=== PATIENT | female | born 1970 | race American Indian/Alaskan Native ===

== ENCOUNTER 2016-12-01 17:01 | Observation (INO) | payer BC ==
[2016-12-01] MEDS ORDERED: D5LR 1,000 ML IV ONE (18:00)
[2016-12-01] MEDS ORDERED: LACTATED RINGERS 1,000 ML ONE (20:31)
[2016-12-01] MEDS ORDERED: TYLENOL PO PRN (20:36)
[2016-12-01] MEDS ORDERED: ALUM-MAG HYDROX-SIMETH 200-200-20MG/5ML PO PRN (20:36)
[2016-12-01] MEDS ORDERED: MILK OF MAGNESIA PO PRN (20:36)
[2016-12-01] MEDS ORDERED: COLACE PO PRN (20:36)
[2016-12-01] MEDS ORDERED: MYLICON PO PRN (20:36)
[2016-12-01] MEDS ORDERED: LACTATED RINGERS 1,000 ML IV SCH (21:00)
--- NOTE | 2016-12-01 21:00 | History and Physical Report ---
History of Present Illness Date of examination: 12/01/16 Chief complaint: NRFHT History of present illness: This is a 46-year-old female who presents to triage from the office due to nonreassuring heart rate tracing. She has a history of hypertension and hypothyroidism. She has not required any medications for her height per tension. She is follow by a MFM and has a BPP done once a week with MFM and NST done in the office weekly. Today strip was minimal variability with minimal accelerations. Patient gives a history of a similar strip occurring approximately 2 weeks ago. Her evaluation consisted of a BPP that was 8 out of 8. She then went home to [facility] where she had an episode of decreased movement and was evaluated at [facility] where a similar strip was also seen but also her BPP was 8 out of 8. Patient states she was followed up in the office the next week or her NST was reactive. Today her BPP is 8 out of 8 however strip continues to be minimally reactive. She is admitted now for prolonged monitoring. Past History : 4 Para: 0 Aborta: 3 Spont. Ab: 1 # 1 Delivery date: 1994 Delivery type: EAB # 2 Delivery date: 1999 Delivery type: EAB #3 Delivery date: 2009 Delivery type: SAB w/ D&C Past Medical History: Hypertension no meds Hypothyroidism Past Surgical History: D&C 2009 Past Medical History Anesthesia Complications: negative Anemia: negative Autoimmune Disorder: negative Bleeding Disorder: negative Blood Transfusions: negative Breast Disease: negative Diabetes: negative Heart Disease: negative Hypertension: positive Hepatitis/Liver Disease: negative Kidney Disease/UTI: negative Neurologic/Epilepsy/Migraines: negative Phlebitis/Varicosities: negative Psychiatric: negative Pulmonary Disease/Asthma: negative Thyroid Disease: positive Hospitalizations: negative Surgery (Non-match up person): D&C 2009 Abnormal PAP: positive, age 29, cryo SUKHDEEP Exposure: negative Infertility: positive Uterine Anomaly: negative Uterine Surgery (not C/S): negative Other Gynecologic Problems: negative Social Hx: , no etoh, no illicit drug use, no tobacco use x 3 years Patient is 2012. he had a mental breakdown Infection History Hx of STD: gonorrhea HIV Risk Eval: no Hepatitis B Risk Eval: low risk Personal hx. of genital herpes: no Partner hx. of genital herpes: no Rash, Viral, or Febrile illness since last LMP? no Varicella/Chicken Pox Status: Previous Disease TB Risk: no Infection History Comments: 1990 Genetic History ADVANCED MATERNAL AGE Congenital Heart Defect: Mom: no Dad: no Jah Disease: Mom: no Dad: no Thalassemia Mom: no Dad: no Neural Tube Defect Mom: no Dad: no Down's Syndrome Mom: no Dad: no Nile-Sachs Mom: no Dad: no Sickle Cell Disease/Trait Mom: no Dad: no Hemophilia Mom: no Dad: no Muscular Dystrophy Mom: no Dad: no Cystic Fibrosis Mom: no Dad: no [place] Chorea Mom: no Dad: no Mental Retardation Mom: no Dad: no Fragile X Mom: no Dad: no Other Genetic/Chromosomal Disorder Mom: no Dad: no Child w/other defect Mom: no Dad: no Enviromental Exposures Xray Exposure: no Medication, drug, or alcohol use since LMP: no Chemical/Other Exposure: no Exposure to Cat Liter: no 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 (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): SYNTHROID 25 MCG TABS (LEVOTHYROXINE SODIUM) 1 tab daily Current Allergies (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): No known allergies Past History - Obstetrical History Expected Date of Delivery: 01/07/17 Actual Gestation: 34 Week(s) 5 Day(s) : 4 Medications and Allergies Allergies Allergy/AdvReac Type Severity Reaction Status Date / Time No Known Allergies Allergy Unverified 02/13/13 14:33 Home Medications Medication Instructions Recorded Confirmed Last Taken Type Levothyroxine [Synthroid] 25 mcg PO QAM 02/13/13 02/13/13 Unknown History amLODIPine [Norvasc] 5 mg PO DAILY #60 tab 02/13/13 Unknown Rx Active Meds: Active Medications Acetaminophen (Tylenol) 650 mg PO Q4H PRN PRN Reason: Pain MILD(1-3)/Fever >100.5/CHOW Al Hydrox/Mg Hydrox/Simethicone (Alum-Mag Hydrox-Simeth [phone]/5ml) 30 ml PO Q6H PRN PRN Reason: Indigestion Docusate Sodium (Colace) 100 mg PO Q12H PRN PRN Reason: Constipation Lactated Ringer's (Lactated Ringers) 1,000 mls @ 125 mls/hr IV DIRECT LEIDA Lactated Ringer's (Lactated Ringers) 1,000 mls @ 125 mls/hr IV DIRECT LEIDA Magnesium Hydroxide (Milk Of Magnesia) 30 ml PO QHS PRN PRN Reason: Laxative Effect Multivitamins/Iron/Calcium ( Vitamin) 1 each PO QDAY LEIDA Simethicone (Mylicon) 80 mg PO Q6H PRN PRN Reason: Gas pain Review of Systems All systems: negative - Vital Signs Vital signs: Vital Signs Pulse BP 91 H 122/80 12/01/16 17:17 12/01/16 17:17 Temp Pulse Resp BP Pulse Ox 85 115/80 99 12/01/16 20:49 12/01/16 20:11 12/01/16 20:49 - Obstetrical FHR: category 2 Uterine Contraction Monitor Mode: External Results All other labs normal. Assessment and Plan - Patient Problems (1) 34 weeks gestation of Current Visit: Yes Status: Acute (2) Hypothyroidism affecting Current Visit: Yes Status: Acute Qualifiers: Trimester: T (3) Non-reassuring electronic monitoring tracing Current Visit: Yes Status: Acute Plan to address problem: Patient states she hasn't eaten all day. She is received 1 L of D5 LR. Will continue IV fluid hydration with LR. Will also allow her to eat. Continuous electronic monitoring. (4) Hypertension Current Visit: No Status: Acute Qualifiers: Hypertension type: H
[2016-12-01 22:35] LABS: Hematocrit 35.7 % (30.3-42.9); Hemoglobin 12.2 gm/dl (10.1-14.3); Mean Corpuscular HGB Conc 34 % (30-34); Mean Corpuscular Hemoglobin 30 pg (28-32); Mean Corpuscular Volume 88 fl (79-97); Platelet Count 209 K/mm3 (140-440); Red Blood Count 4.06 M/mm3 (3.65-5.03); White Blood Count 9.8 K/mm3 (4.5-11.0)
[2016-12-01 22:53] LABS: Alanine Aminotransferase 20 units/L (7-56); Albumin 3.3 g/dL (3.9-5); Albumin/Globulin Ratio 0.9 %; Alkaline Phosphatase 105 units/L (35-129); Anion Gap 20 mmol/L; Blood Urea Nitrogen 5 mg/dL (7-17); Carbon Dioxide 18 mmol/L (22-30); Chloride 99.7 mmol/L (98-107); Glucose 112 mg/dL (65-100); Potassium 3.9 mmol/L (3.6-5.0); Sodium 134 mmol/L (137-145); Total Protein 7.1 g/dL (6.3-8.2)
[2016-12-01] MEDS: LACTATED RINGERS 1,000 ML IV SCH (23:35)
[2016-12-02] MEDS: LACTATED RINGERS 1,000 ML IV SCH (07:13)
[2016-12-02 08:10] VITALS: BP 135/80
--- NOTE | 2016-12-02 08:17 | Progress Note ---
Assessment and Plan patient resting without complaints. reports active FM, denies ctx, srom or vag bleeding. tracing remains w/ mostly minimal variability, + 10x10 accels. BPP last night 11/21. Patient requesting to go home. Will consult dr. Guerra. - Patient Problems (1) 34 weeks gestation of Current Visit: Yes Status: Acute (2) Hypothyroidism affecting Current Visit: Yes Status: Acute Qualifiers: Trimester: T (3) Non-reassuring electronic monitoring tracing Current Visit: Yes Status: Acute (4) Hypertension Current Visit: No Status: Acute Qualifiers: Hypertension type: essential hypertension Qualified Code(s): I10 - Essential (primary) hypertension Subjective - Subjective Date of service: 12/02/16 Principal diagnosis: IUP @ 34+ weeks, observation for monitoring Patient reports: movement normal, other ("I'm ready to go home"), no new complaints, no loss of fluid, no vaginal bleeding, no contractions Objective - Vital Signs Vital Signs: Vital Signs - 12hr 12/01/16 12/01/16 12/01/16 20:14 20:19 20:24 Temperature Pulse Rate 94 H 87 86 Respiratory Rate Blood Pressure O2 Sat by Pulse 99 99 99 Oximetry 12/01/16 12/01/16 12/01/16 20:29 20:34 20:39 Temperature Pulse Rate 103 H 92 H 94 H Respiratory Rate Blood Pressure O2 Sat by Pulse 99 100 99 Oximetry 12/01/16 12/01/16 12/01/16 20:44 20:49 20:54 Temperature Pulse Rate 82 85 81 Respiratory Rate Blood Pressure O2 Sat by Pulse 100 99 98 Oximetry 12/01/16 12/01/16 12/01/16 20:59 21:02 21:04 Temperature Pulse Rate 83 91 H 86 Respiratory Rate Blood Pressure O2 Sat by Pulse 99 89 99 Oximetry 12/01/16 12/01/16 12/01/16 21:09 21:14 21:19 Temperature Pulse Rate 83 90 94 H Respiratory Rate Blood Pressure O2 Sat by Pulse 99 100 98 Oximetry 12/01/16 12/01/16 12/01/16 21:24 21:29 21:34 Temperature Pulse Rate 93 H 103 H 105 H Respiratory Rate Blood Pressure O2 Sat by Pulse 100 94 99 Oximetry 12/01/16 12/01/16 12/01/16 21:39 21:44 21:49 Temperature Pulse Rate 96 H 104 H 101 H Respiratory Rate Blood Pressure O2 Sat by Pulse 100 100 99 Oximetry 12/01/16 12/01/16 12/01/16 21:54 23:24 23:25 Temperature 98.6 F Pulse Rate 92 H 98 H 98 H Respiratory 20 Rate Blood Pressure 120/71 120/71 O2 Sat by Pulse 100 Oximetry 12/02/16 12/02/16 12/02/16 03:14 03:15 03:22 Temperature 98.7 F Pulse Rate 96 H 96 H 96 H Respiratory 20 Rate Blood Pressure 127/61 127/61 O2 Sat by Pulse 98 Oximetry 12/02/16 12/02/16 08:07 08:08 Temperature Pulse Rate 96 H 94 H Respiratory Rate Blood Pressure 135/80 O2 Sat by Pulse 98 Oximetry - Exam Breasts: normal Cardiovascular: Regular rate Lungs: Clear to auscultation, Normal air movement Abdomen: Present: normal appearance, soft Vulva: both: normal Uterus: Present: normal FHR: category 2 FHR comments: min variabilty with 10x10 accels. there are short periods of time where variability is average. Uterine Contraction Monitor Mode: External Uterine Contraction Pattern: Absent Uterine Tone Measurement Phase: Resting Extremities: normal Deep Tendon Reflex Grade: Normal +2 - Labs Labs: Abnormal Labs 12/01/16 12/01/16 12/01/16 21:57 21:57 21:57 RDW 16.0 H Sodium 134 L Carbon Dioxide 18 L BUN 5 L Creatinine 0.5 L Glucose 112 H Albumin 3.3 L Free T4 0.70 L Laboratory Results - last 24 hr 12/01/16 12/01/16 12/01/16 21:57 21:57 21:57 WBC 9.8 RBC 4.06 Hgb 12.2 Hct 35.7 MCV 88 MCH 30 MCHC 34 RDW 16.0 H Plt Count 209 Sodium 134 L Potassium 3.9 Chloride 99.7 Carbon Dioxide 18 L Anion Gap 20 BUN 5 L Creatinine 0.5 L Estimated GFR > 60 BUN/Creatinine Ratio 10.00 Glucose 112 H Calcium 9.0 Total Bilirubin 0.40 AST 25 ALT 20 Alkaline Phosphatase 105 Total Protein 7.1 Albumin 3.3 L Albumin/Globulin Ratio 0.9 TSH Free T4 0.70 L Blood Type Antibody Screen 08/18/17 08/18/17 21:57 22:10 WBC RBC Hgb Hct MCV MCH MCHC RDW Plt Count Sodium Potassium Chloride Carbon Dioxide Anion Gap BUN Creatinine Estimated GFR BUN/Creatinine Ratio Glucose Calcium Total Bilirubin AST ALT Alkaline Phosphatase Total Protein Albumin Albumin/Globulin Ratio TSH 2.890 Free T4 Blood Type A POSITIVE Antibody Screen Negative
--- NOTE | 2016-12-02 09:22 | Event Note ---
Date: 12/02/[address] herrera, currently with yohana lara and accels. plan for d/c home with strict instructions for [facility]. NST Appointment scheduled for Sunday with Dr. herrera @ 1400.
--- NOTE | 2016-12-02 09:26 | Discharge Summary ---
Providers - Providers Date of Admission: 12/01/16 22:39 Date of discharge: 12/02/16 Attending physician: ARTHUR SAN Primary care physician: ARTHUR SAN Hospitalization Reason for admission: observation Discharge diagnosis: other (IUP @ 34 wga, admission for prolonged monitoring for wellbeing. ) Hospital course: prolonged monitoring for wellbeing. Condition at discharge: Good Disposition: DC-01 TO HOME OR SELFCARE - Discharge Diagnoses (1) 34 weeks gestation of Status: Acute (2) Hypothyroidism affecting Status: Acute Qualifiers: Trimester: T (3) Non-reassuring electronic monitoring tracing Status: Resolved (4) Hypertension Status: Acute Qualifiers: Hypertension type: essential hypertension Qualified Code(s): I10 - Essential (primary) hypertension Plan - Provider Discharge Summary Activity: routine Diet: routine Instructions: routine Additional instructions: [] Smoking cessation referral if applicable(refer to patient education folder for contact #) [] Refer to [facility] Booklet Call your doctor immediately for: * Fever > 100.5 * Heavy vaginal bleeding ( >1 pad per hour) * Severe persistent headache * Shortness of breath * Reddened, hot, painful area to leg or breast * Drainage or odor from incision. * Keep incision clean and dry at all times and follow doctor's instructions regarding bathing/showering - Follow up plan Follow up: ARTHUR SAN MD [Primary Care Provider] - 12/04/16 2:00 pm (An appointment has been made for Sunday @ 2PM in the [place] office. Please also keep your appointment with [facility] on Sunday. Please perform kick counts twice a day. Call [phone] for any questions or concerns. )
[2016-12-02] MEDS ORDERED: PRENATAL VITAMIN PO SCH (10:00)
--- NOTE | 2016-12-03 10:35 | Ultrasound Report ---
ULTRASOUND BIOPHYSICAL PROFILE: History: well being Technique: Transabdominal ultrasound with Doppler interrogation. 2 - breathing movements 2 - movements 2 - posture and tone 2 - Qualitative amniotic fluid volume 8 - TOTAL SCORE OF POSSIBLE 8 Heart Rate (bpm) 126
--- NOTE | 2016-12-03 10:35 | Ultrasound Report ---
ULTRASOUND OB LIMITED History: well being Technique: Transabdominal ultrasound with Doppler interrogation. Gestation: Single Position: Cephalic Amniotic Fluid: Normal NIKO = 11.0 cm Heart Rate: 126 BPM
== END 2016-12-02 09:50 | disposition home or self-care (01) ==
LOC: TRG 17:01 → LD 19:29 → TRG 22:39 → LD 22:39
PROVIDERS: ADMIT Obstetrics & Gynecology; ATTEND Obstetrics & Gynecology
DX: O09.523 Supervision of elderly multigravida, third trimester (principal); O10.013 Pre-existing essential hypertension complicating pregnancy, third trimester; O99.283 Endocrine, nutritional and metabolic diseases complicating pregnancy, third trimester; E03.9 Hypothyroidism, unspecified; Z3A.34 34 weeks gestation of pregnancy
CPT/HCPCS: 36415; 76815; 76819; 80053; 84439; 84443; 84481; 85027; 86850; 86900; 86901; 96360; 96361; G0378; J7120; J7121

== ENCOUNTER 2016-12-27 02:21 | Outpatient (CLI) | payer BC ==
[2016-12-27 02:39] VITALS: BP 128/75
[2016-12-27] MEDS ORDERED: NITRATEST PAPER MC ONE (03:00)
== END 2016-12-27 03:29 | disposition home or self-care (01) ==
LOC: TRG 02:21
PROVIDERS: ATTEND Obstetrics & Gynecology
DX: O09.523 Supervision of elderly multigravida, third trimester (principal); O47.1 False labor at or after 37 completed weeks of gestation; Z3A.38 38 weeks gestation of pregnancy
CPT/HCPCS: 59025

== ENCOUNTER 2016-12-27 16:48 | Inpatient (IN) | payer BC ==
[2016-12-27] MEDS ORDERED: XYLOCAINE 2% INFILTRATI ONE (17:44)
[2016-12-27] MEDS ORDERED: MINERAL OIL PO PRN (17:44)
[2016-12-27] MEDS ORDERED: BRETHINE SUB-Q PRN (17:44)
[2016-12-27] MEDS ORDERED: SUBLIMAZE IV PRN (17:44)
[2016-12-27] MEDS ORDERED: ZOFRAN IV PRN (17:44)
[2016-12-27] MEDS ORDERED: ePHEDrine SULFATE IV PRN ×2 (17:44→20:53)
[2016-12-27] MEDS ORDERED: POLYCILLIN/NS 2 GM/100 ML 2 GM/100 ML BAG IV ONE (17:44)
--- NOTE | 2016-12-27 17:44 | History and Physical Report ---
History of Present Illness Date of examination: 12/27/16 Date of admission: 12/27/16 16:48 Chief complaint: Patient sent from office for induction/augmentation of labor d/t nonreassuring monitoring. History of present illness: EDC Calculations LMP: 01/07/2017 EDC Confirmation: 01/07/2017 Past History : 4 Para: 0 Aborta: 3 Spont. 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 he had a mental breakdown Infection History Hx of STD: gonorrhea HIV Risk Eval: no Hepatitis B Risk Eval: low risk Personal hx. of genital herpes: no Partner hx. of genital herpes: no Rash, Viral, or Febrile illness since last LMP? no Varicella/Chicken Pox Status: Previous Disease TB Risk: no Infection History Comments: 1990 Genetic History ADVANCED MATERNAL AGE Congenital Heart Defect: Mom: no Dad: no Jah Disease: Mom: no Dad: no Thalassemia Mom: no Dad: no Neural Tube Defect Mom: no Dad: no Down's Syndrome Mom: no Dad: no Nile-Sachs Mom: no Dad: no Sickle Cell Disease/Trait Mom: no Dad: no Hemophilia Mom: no Dad: no Muscular Dystrophy Mom: no Dad: no Cystic Fibrosis Mom: no Dad: no [place] Chorea Mom: no Dad: no Mental Retardation Mom: no Dad: no Fragile X Mom: no Dad: no Other Genetic/Chromosomal Disorder Mom: no Dad: no Child w/other defect Mom: no Dad: no Enviromental Exposures Xray Exposure: no Medication, drug, or alcohol use since LMP: no Chemical/Other Exposure: no Exposure to Cat Liter: no 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 (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): VITAMIN D 2000 UNIT CAPS (CHOLECALCIFEROL) ZYRTEC ALLERGY TABS (CETIRIZINE HCL TABS) METOPROLOL TARTRATE TABS (METOPROLOL TARTRATE TABS) TRIBENZOR 40-10-12.5 MG TABS ([id number]) SYNTHROID 25 MCG TABS (LEVOTHYROXINE SODIUM) 1 tab daily IBUPROFEN 800 MG TABS (IBUPROFEN) 1 po q6 hr prn pain Current Allergies (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): No known allergies Past History Past Medical History: hypertension, thyroid disease - Obstetrical History Expected Date of Delivery: 01/07/17 Actual Gestation: 38 Week(s) 3 Day(s) : 4 Para: 0 Hx # Term Pregnancies: 0 Number of Pregnancies: 0 Spontaneous Abortions: 1 Induced : 2 Number of Living Children: 0 Medications and Allergies Allergies Allergy/AdvReac Type Severity Reaction Status Date / Time No Known Allergies Allergy Verified 12/27/16 02:47 Home Medications Medication Instructions Recorded Confirmed Last Taken Type Levothyroxine [Synthroid] 25 mcg PO QAM 02/13/13 02/13/13 Unknown History amLODIPine [Norvasc] 5 mg PO DAILY #60 tab 02/13/13 Unknown Rx Review of Systems All systems: negative - Physical Exam Breasts: Positive: normal Cardiovascular: Regular rate Lungs: Positive: Clear to auscultation, Normal air movement Abdomen: Positive: normal appearance, soft Genitourinary (Female): Positive: normal external genitalia, normal perenium Vagina: Positive: normal moisture Uterus: Positive: normal size, normal contour Anus/Rectum: Positive: normal perianal skin Extremities: Positive: normal - Obstetrical FHR: category 2 Uterine Contraction Monitor Mode: External Cervical Dilatation: 3.5 Cervical Effacement Percentage: 80 station: -2 Uterine Contraction Frequency (min): 5-6 Uterine Contraction Duration: 80 Uterine Contraction Pattern: Regular Uterine Tone Measurement Phase: Contraction Uterine Contraction Intensity: Mild Results All other labs normal. Patient: BARBIE GIORDANO ID: [id number] Note: All result statuses are Final unless otherwise noted. Tests: (1) Profile I ([id number]) Order Note: Clinical Information: SRC:UR Urine SRC:UR Urine HBsAg Screen Negative Negative *1 Rubella Antibodies, IgG 2.44 index Immune >0.99 *2 Non-immune <0.90 Equivocal 0.90 - 0.99 Immune >0.99 ABO Grouping A *3 Rh Factor Positive *4 Please note: Prior records for this patient's ABO / Rh type are not available for additional verification. Antibody Screen Negative Negative *5 RPR Non Reactive Non Reactive *6 WBC 8.1 x10E3/uL 3.4-10.8 *7 RBC 4.10 x10E6/uL 3.77-5.28 *8 Hemoglobin 12.4 g/dL 11.1-15.9 *9 Hematocrit 37.3 % 34.0-46.6 *10 MCV 91 fL 79-97 *11 MCH 30.2 pg 26.6-33.0 *12 MCHC 33.2 g/dL 31.5-35.7 *13 RDW 13.0 % 12.3-15.4 *14 Platelets 287 x10E3/uL 150-379 *15 Neutrophils 62 % *16 Lymphs 31 % *17 Monocytes 6 % *18 Eos 1 % *19 Basos 0 % *20 ! Immature Cells <No Reported Value> *21 Neutrophils (Absolute) 4.9 x10E3/uL 1.4-7.0 *22 Lymphs (Absolute) 2.6 x10E3/uL 0.7-3.1 *23 Monocytes(Absolute) 0.5 x10E3/uL 0.1-0.9 *24 Eos (Absolute) 0.1 x10E3/uL 0.0-0.4 *25 Baso (Absolute) 0.0 x10E3/uL 0.0-0.2 *26 ! Immature Granulocytes 0 % *27 ! Immature Grans (Abs) 0.0 x10E3/uL 0.0-0.1 *28 ! NRBC <No Reported Value> *29 Hematology Comments: <No Reported Value> *30 Tests: (2) Comp. Metabolic Panel (14) ([id number]) Glucose, Serum 81 mg/dL 65-99 *31 BUN 8 mg/dL 6-24 *32 Creatinine, Serum 0.63 mg/dL 0.57-1.00 *33 ! eGFR If NonAfricn Am 109 mL/min/1.73 >59 *34 ! eGFR If Africn Am 126 mL/min/1.73 >59 *35 BUN/Creatinine Ratio 13 9-23 *36 Sodium, Serum 136 mmol/L 134-144 *37 Potassium, Serum 3.8 mmol/L 3.5-5.2 *38 Chloride, Serum 97 mmol/L 96-106 *39 Carbon Dioxide, Total 20 mmol/L 18-29 *40 Calcium, Serum 9.5 mg/dL 8.7-10.2 *41 Protein, Total, Serum 7.6 g/dL 6.0-8.5 *42 Albumin, Serum 4.6 g/dL 3.5-5.5 *43 Globulin, Total 3.0 g/dL 1.5-4.5 *44 A/G Ratio 1.5 1.1-2.5 *45 Effective June 26, 2016 the reference interval for A/G Ratio will be changing to: Age Male Female 0 - 7 days 1.1 - 2.3 1.1 - 2.3 8 - 30 days 1.2 - 2.8 1.2 - 2.8 1 - 6 months 1.3 - 3.6 1.3 - 3.6 7 months - 5 years 1.5 - 2.6 1.5 - 2.6 > 5 years 1.2 - 2.2 1.2 - 2.2 Bilirubin, Total 0.3 mg/dL 0.0-1.2 *46 Alkaline Phosphatase, S 57 IU/L 39-117 *47 AST (SGOT) 20 IU/L 0-40 *48 ALT (SGPT) 21 IU/L 0-32 *49 Tests: (3) Thyroid Profile II ([id number]) TSH 2.970 uIU/mL 0.450-4.500 *50 Thyroxine (T4) 11.4 ug/dL 4.5-12.0 *51 T3 Uptake [L] 18 % 24-39 *52 Free Thyroxine Index 2.1 1.2-4.9 *53 Triiodothyronine (T3) [H] 196 ng/dL 71-180 *54 Tests: (4) Creatinine Clearance ([id number]) Creatinine, Urine 69.1 mg/dL Not Estab. *55 Creatinine, Ur 24hr 1693 mg/24 hr 800-1800 *56 Creatinine Clearance [H] 187 mL/min 88-128 *57 The above range is based on 1.73 square meter average body surface area. Tests: (5) Protein Total, Qn, 24-Hr Urine ([id number]) Protein,Total,Urine 6.1 mg/dL Not Estab. *58 Prot,24hr calculated 149.5 mg/24 hr 30.0-150.0 *59 Tests: (6) HB Solu + Rflx Fra ([id number]) Hemoglobin (Hgb) Solubility Negative Negative *60 Tests: (7) Panel 650962 ([id number]) HIV Screen 4th Generation wRfx Non Reactive Non Reactive *61 Tests: (8) Urine Culture, Routine ([id number]) Urine Culture, Routine Final report *62 Tests: (9) Result ([id number]) ! Result 1 MUG *63 Mixed urogenital mary 10,000-25,000 colony forming units per mL Assessment and Plan 46 y/o @38+3 weeks, GBS Neg, hypothyroid (Synthroid 25mcg) and HTN (no meds ). NST in office nonreactive with minimal-absent variability and ctx q5-6 minutes. [facility] 6#13 12/12/16. Patient was seen in triage last night for leaking amniotic fluid and had neg nitrazine. clear/blood tinged fluid noted after SVE. Plan to start pitocin, epidural and antibiotics for possible prolonged ROM. Dr. Sanchez consulted for plan of care. - Patient Problems (1) 38 weeks gestation of Current Visit: Yes Status: Acute (2) Non-reassuring electronic monitoring tracing Current Visit: No Status: Resolved Plan to address problem: Augment/induce labor Continuous EFM/toco (3) Hypertension Current Visit: No Status: Acute Qualifiers: Hypertension type: essential hypertension Qualified Code(s): I10 - Essential (primary) hypertension Plan to address problem: no medications needed during Continue to monitor (4) Hypothyroidism affecting Current Visit: No Status: Acute Qualifiers: Trimester: third trimester Qualified Code(s): O99.283 - Endocrine, nutritional and metabolic diseases complicating , third trimester; E03.9 - Hypothyroidism, unspecified Plan to address problem: Labs Continue dose of Synthroid 25mcg QD
[2016-12-27] MEDS ORDERED: PITOCin/NS 20 UNIT/1000ML DRIP 20 UNITS/1,000 ML BAG IV SCH (18:00)
[2016-12-27] MEDS ORDERED: PITOCin/NS 30 UNIT/500ML 30 UNITS/500 ML BAG IV SCH (18:00)
[2016-12-27] MEDS: LACTATED RINGERS 1,000 ML IV SCH ×2 (18:10→21:29)
[2016-12-27 19:19] LABS: Hematocrit 37.2 % (30.3-42.9); Hemoglobin 12.4 gm/dl (10.1-14.3); Mean Corpuscular HGB Conc 33 % (30-34); Mean Corpuscular Hemoglobin 30 pg (28-32); Mean Corpuscular Volume 89 fl (79-97); Platelet Count 213 K/mm3 (140-440); Red Cell Distribution Width 17.3 % (13.2-15.2); White Blood Count 10.3 K/mm3 (4.5-11.0)
[2016-12-27] MEDS ORDERED: ePHEDrine SULFATE ONE (20:26)
[2016-12-27] MEDS ORDERED: NARCAN 2 MG/2 ML IV PRN (20:53)
--- NOTE | 2016-12-27 20:53 | Anesthesia Consultation ---
Anesthesia Consult and Med Hx Date of service: 12/27/16 - Airway Anesthetic Teeth Evaluation: Good ROM Head & Neck: Adequate Mental/Hyoid Distance: Adequate Mallampati Class: Class II Intubation Access Assessment: Good - Pulmonary Exam CTA: Yes - Cardiac Exam Cardiac Exam: No Murmur - Pre-Operative Health Status ASA Pre-Surgery Classification: ASA2 Proposed Anesthetic Plan: Epidural - Pulmonary Hx Asthma: No COPD: No Hx Pneumonia: No - Cardiovascular System Hx Hypertension: Yes (taken off meds due to normal BPs) - Central Nervous System Hx Seizures: No Hx Psychiatric Problems: No - Endocrine Hx Renal Disease: No Hx End Stage Renal Disease: No Hx Hypothyroidism: Yes (levothyroxine 25mcg) Hx Hyperthyroidism: No - Hematic Hx Anemia: No Hx Sickle Cell Disease: No - Other Systems Hx Alcohol Use: No
[2016-12-27] MEDS ORDERED: fentaNYL-BUPIV 2 MCG/ML-0.125% 200 MCG/100 ML BAG EPIDURAL SCH (21:00)
--- NOTE | 2016-12-27 21:19 | Progress Note ---
Assessment and Plan Patient comfortable with epidural. SVE-no BOW noted. ISE and IUPC placed without difficulty, both tracing well. Pitocin currently @ 8mu, continue to titrate for adequate labor. Dr. Laura Caruso [facility]. - Patient Problems (1) 38 weeks gestation of Current Visit: Yes Status: Acute (2) Non-reassuring electronic monitoring tracing Current Visit: Yes Status: Resolved (3) Hypertension Current Visit: Yes Status: Acute Qualifiers: Hypertension type: essential hypertension Qualified Code(s): I10 - Essential (primary) hypertension (4) Hypothyroidism affecting Current Visit: Yes Status: Acute Qualifiers: Trimester: third trimester Qualified Code(s): O99.283 - Endocrine, nutritional and metabolic diseases complicating , third trimester; E03.9 - Hypothyroidism, unspecified Subjective - Subjective Date of service: 12/27/16 Principal diagnosis: IUP@ 38+3, nonreassuring FHT, IOL Interval history: EDC Calculations LMP: 01/07/2017 EDC Confirmation: 01/07/2017 Past History : 4 Para: 0 Aborta: 3 Spont. 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 he had a mental breakdown Infection History Hx of STD: gonorrhea HIV Risk Eval: no Hepatitis B Risk Eval: low risk Personal hx. of genital herpes: no Partner hx. of genital herpes: no Rash, Viral, or Febrile illness since last LMP? no Varicella/Chicken Pox Status: Previous Disease TB Risk: no Infection History Comments: 1989 Genetic History ADVANCED MATERNAL AGE Congenital Heart Defect: Mom: no Dad: no Jah Disease: Mom: no Dad: no Thalassemia Mom: no Dad: no Neural Tube Defect Mom: no Dad: no Down's Syndrome Mom: no Dad: no Nile-Sachs Mom: no Dad: no Sickle Cell Disease/Trait Mom: no Dad: no Hemophilia Mom: no Dad: no Muscular Dystrophy Mom: no Dad: no Cystic Fibrosis Mom: no Dad: no [place] Chorea Mom: no Dad: no Mental Retardation Mom: no Dad: no Fragile X Mom: no Dad: no Other Genetic/Chromosomal Disorder Mom: no Dad: no Child w/other defect Mom: no Dad: no Enviromental Exposures Xray Exposure: no Medication, drug, or alcohol use since LMP: no Chemical/Other Exposure: no Exposure to Cat Liter: no 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 (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): VITAMIN D 2000 UNIT CAPS (CHOLECALCIFEROL) ZYRTEC ALLERGY TABS (CETIRIZINE HCL TABS) METOPROLOL TARTRATE TABS (METOPROLOL TARTRATE TABS) TRIBENZOR 40-10-12.5 MG TABS ([id number]) SYNTHROID 25 MCG TABS (LEVOTHYROXINE SODIUM) 1 tab daily IBUPROFEN 800 MG TABS (IBUPROFEN) 1 po q6 hr prn pain Current Allergies (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): No known allergies Patient reports: no new complaints (comfortable s/p epidural) Objective - Vital Signs Vital Signs: Vital Signs - 12hr 12/27/16 12/27/16 12/27/16 17:39 17:48 18:19 Temperature 97.6 F Pulse Rate 104 H 110 H Respiratory 18 Rate Blood Pressure 125/75 Blood Pressure 125/75 [Right] O2 Sat by Pulse 98 Oximetry 12/27/16 12/27/16 12/27/16 19:42 19:46 19:47 Temperature 97.4 F L Pulse Rate 94 H 95 H 99 H Respiratory 18 Rate Blood Pressure 116/64 Blood Pressure 116/64 [Right] O2 Sat by Pulse 98 98 Oximetry 12/27/16 12/27/16 12/27/16 19:51 19:56 20:00 Temperature Pulse Rate 85 94 H Respiratory 18 Rate Blood Pressure Blood Pressure [Right] O2 Sat by Pulse 99 99 Oximetry 12/27/16 12/27/16 12/27/16 20:01 20:06 20:11 Temperature Pulse Rate 97 H 81 95 H Respiratory Rate Blood Pressure Blood Pressure [Right] O2 Sat by Pulse 98 97 97 Oximetry 12/27/16 12/27/16 12/27/16 20:14 20:16 20:18 Temperature Pulse Rate 81 80 102 H Respiratory Rate Blood Pressure 98/55 Blood Pressure [Right] O2 Sat by Pulse 92 97 Oximetry 12/27/16 12/27/16 12/27/16 20:21 20:23 20:26 Temperature Pulse Rate 94 H 82 100 H Respiratory Rate Blood Pressure Blood Pressure [Right] O2 Sat by Pulse 97 93 96 Oximetry 12/27/16 12/27/16 12/27/16 20:31 20:36 20:37 Temperature Pulse Rate 105 H 83 95 H Respiratory Rate Blood Pressure 129/67 Blood Pressure [Right] O2 Sat by Pulse 96 96 Oximetry 12/27/16 12/27/16 12/27/16 20:42 20:43 20:45 Temperature Pulse Rate 101 H 86 85 Respiratory Rate Blood Pressure 130/71 121/62 124/68 Blood Pressure [Right] O2 Sat by Pulse 97 Oximetry 12/27/16 12/27/16 12/27/16 20:47 20:49 20:51 Temperature Pulse Rate 89 96 H 96 H Respiratory Rate Blood Pressure 122/61 122/63 117/72 Blood Pressure [Right] O2 Sat by Pulse 99 Oximetry 12/27/16 12/27/16 12/27/16 20:52 20:54 20:55 Temperature Pulse Rate 91 H 75 105 H Respiratory Rate Blood Pressure 108/58 109/60 Blood Pressure [Right] O2 Sat by Pulse 92 Oximetry 12/27/16 12/27/16 12/27/16 20:57 21:00 21:01 Temperature Pulse Rate 107 H 118 H 117 H Respiratory Rate Blood Pressure 108/55 98/54 103/51 Blood Pressure [Right] O2 Sat by Pulse 98 89 Oximetry 12/27/16 12/27/16 12/27/16 21:02 21:04 21:05 Temperature Pulse Rate 117 H 115 H 121 H Respiratory Rate Blood Pressure 139/63 128/61 Blood Pressure [Right] O2 Sat by Pulse 100 Oximetry 12/27/16 12/27/16 12/27/16 21:07 21:09 21:12 Temperature Pulse Rate 121 H 114 H 121 H Respiratory Rate Blood Pressure 124/60 122/58 Blood Pressure [Right] O2 Sat by Pulse 100 100 Oximetry 12/27/16 21:13 Temperature Pulse Rate 126 H Respiratory Rate Blood Pressure 107/53 Blood Pressure [Right] O2 Sat by Pulse Oximetry - Exam Breasts: normal Cardiovascular: Regular rate Lungs: Clear to auscultation, Normal air movement Abdomen: Present: normal appearance, soft Vulva: both: normal Uterus: Present: normal FHR: auscultation normal, category 2 Uterine Contraction Monitor Mode: Internal Cervical Dilatation: 5.5 (ISE/IUPC placed) Cervical Effacement Percentage: 100 station: -1 Uterine Contraction Frequency (min): 2-3 Uterine Contraction Duration: 60 Uterine Contraction Pattern: Regular Uterine Tone Measurement Phase: Contraction Uterine Contraction Intensity: Moderate Extremities: normal Deep Tendon Reflex Grade: Normal +2 - Labs Labs: Abnormal Labs 12/27/16 18:00 RDW 17.3 H Laboratory Results - last 24 hr 12/27/16 12/27/16 12/27/16 17:30 18:00 18:00 WBC 10.3 RBC 4.20 Hgb 12.4 Hct 37.2 MCV 89 MCH 30 MCHC 33 RDW 17.3 H Plt Count 213 TSH Free T4 0.81 Blood Type A POSITIVE Antibody Screen Negative 12/27/16 18:00 WBC RBC Hgb Hct MCV MCH MCHC RDW Plt Count TSH 2.230 Free T4 Blood Type Antibody Screen
[2016-12-27] MEDS ORDERED: POLYCILLIN/NS 1 GM/50 ML 1 GM/50 ML BAG IV SCH (21:45)
[2016-12-28] MEDS ORDERED: BICITRA PO ONE (00:09)
[2016-12-28] MEDS ORDERED: REGLAN IV ONE (00:09)
[2016-12-28] MEDS ORDERED: PEPCID IV ONE ×2 (00:09→00:11)
[2016-12-28] MEDS ORDERED: BICITRA ONE (00:10)
[2016-12-28] MEDS ORDERED: REGLAN ONE (00:11)
[2016-12-28] MEDS ORDERED: ANCEF/STERILE WATER 2 GM/20 ML 2 GM/20 ML SYRINGE IV ONE (00:11)
--- NOTE | 2016-12-28 00:15 | Progress Note ---
Assessment and Plan - Patient Problems (1) intolerance to labor, delivered, current hospitalization Current Visit: Yes Status: Acute (2) Failure of descent in labor, delivered, current hospitalization Current Visit: Yes Status: Acute Plan to address problem: Caput to +2, scalp at 0-+1. Persistent and recurrent lates and no descent with good maternal effort. OP position. Options reviewed, questions answered, risks explained with attempt operative vaginal delivery vs c/s. She desires to proceed with c/s delivery,consents reviewed and signed Subjective - Subjective Principal diagnosis: IUP@ 38+3, nonreassuring FHT, IOL Patient reports: no new complaints (comfortable s/p epidural) Objective - Vital Signs Vital Signs: Vital Signs - 12hr 12/27/16 12/27/16 12/27/16 17:39 17:48 18:19 Temperature 97.6 F Pulse Rate 104 H 110 H Respiratory 18 Rate Blood Pressure 125/75 Blood Pressure 125/75 [Right] O2 Sat by Pulse 98 Oximetry 12/27/16 12/27/16 12/27/16 19:42 19:46 19:47 Temperature 97.4 F L Pulse Rate 94 H 95 H 99 H Respiratory 18 Rate Blood Pressure 116/64 Blood Pressure 116/64 [Right] O2 Sat by Pulse 98 98 Oximetry 12/27/16 12/27/16 12/27/16 19:51 19:56 20:00 Temperature Pulse Rate 85 94 H Respiratory 18 Rate Blood Pressure Blood Pressure [Right] O2 Sat by Pulse 99 99 Oximetry 12/27/16 12/27/16 12/27/16 20:01 20:06 20:11 Temperature Pulse Rate 97 H 81 95 H Respiratory Rate Blood Pressure Blood Pressure [Right] O2 Sat by Pulse 98 97 97 Oximetry 12/27/16 12/27/16 12/27/16 20:14 20:16 20:18 Temperature Pulse Rate 81 80 102 H Respiratory Rate Blood Pressure 98/55 Blood Pressure [Right] O2 Sat by Pulse 92 97 Oximetry 12/27/16 12/27/16 12/27/16 20:21 20:23 20:26 Temperature Pulse Rate 94 H 82 100 H Respiratory Rate Blood Pressure Blood Pressure [Right] O2 Sat by Pulse 97 93 96 Oximetry 12/27/16 12/27/16 12/27/16 20:31 20:36 20:37 Temperature Pulse Rate 105 H 83 95 H Respiratory Rate Blood Pressure 129/67 Blood Pressure [Right] O2 Sat by Pulse 96 96 Oximetry 12/27/16 12/27/16 12/27/16 20:42 20:43 20:45 Temperature Pulse Rate 101 H 86 85 Respiratory Rate Blood Pressure 130/71 121/62 124/68 Blood Pressure [Right] O2 Sat by Pulse 97 Oximetry 12/27/16 12/27/16 12/27/16 20:47 20:49 20:51 Temperature Pulse Rate 89 96 H 96 H Respiratory Rate Blood Pressure 122/61 122/63 117/72 Blood Pressure [Right] O2 Sat by Pulse 99 Oximetry 12/27/16 12/27/16 12/27/16 20:52 20:54 20:55 Temperature Pulse Rate 91 H 75 105 H Respiratory Rate Blood Pressure 108/58 109/60 Blood Pressure [Right] O2 Sat by Pulse 92 Oximetry 12/27/16 12/27/16 12/27/16 20:57 21:00 21:01 Temperature Pulse Rate 107 H 118 H 117 H Respiratory Rate Blood Pressure 108/55 98/54 103/51 Blood Pressure [Right] O2 Sat by Pulse 98 89 Oximetry 12/27/16 12/27/16 12/27/16 21:02 21:04 21:05 Temperature Pulse Rate 117 H 115 H 121 H Respiratory Rate Blood Pressure 139/63 128/61 Blood Pressure [Right] O2 Sat by Pulse 100 Oximetry 12/27/16 12/27/16 12/27/16 21:07 21:09 21:12 Temperature Pulse Rate 121 H 114 H 121 H Respiratory Rate Blood Pressure 124/60 122/58 Blood Pressure [Right] O2 Sat by Pulse 100 100 Oximetry 12/27/16 12/27/16 12/27/16 21:13 21:17 21:22 Temperature Pulse Rate 126 H 121 H 118 H Respiratory Rate Blood Pressure 107/53 Blood Pressure [Right] O2 Sat by Pulse 100 100 Oximetry 12/27/16 12/27/16 12/27/16 21:27 21:32 21:35 Temperature Pulse Rate 120 H 116 H 115 H Respiratory Rate Blood Pressure Blood Pressure [Right] O2 Sat by Pulse 100 100 89 Oximetry 12/27/16 12/27/16 12/27/16 21:37 21:38 21:40 Temperature Pulse Rate 115 H 117 H 114 H Respiratory Rate Blood Pressure 125/59 Blood Pressure [Right] O2 Sat by Pulse 96 94 Oximetry 12/27/16 12/27/16 12/27/16 21:42 21:47 21:52 Temperature Pulse Rate 120 H 114 H 123 H Respiratory Rate Blood Pressure Blood Pressure [Right] O2 Sat by Pulse 91 100 99 Oximetry 12/27/16 12/27/16 12/27/16 21:53 21:57 22:02 Temperature Pulse Rate 121 H 121 H 115 H Respiratory Rate Blood Pressure 126/63 Blood Pressure [Right] O2 Sat by Pulse 100 100 Oximetry 12/27/16 12/27/16 12/27/16 22:07 22:12 22:17 Temperature Pulse Rate 117 H 113 H 118 H Respiratory Rate Blood Pressure 123/70 Blood Pressure [Right] O2 Sat by Pulse 100 100 99 Oximetry 12/27/16 12/27/16 12/27/16 22:22 22:27 22:32 Temperature Pulse Rate 120 H 113 H 109 H Respiratory Rate Blood Pressure 127/75 Blood Pressure [Right] O2 Sat by Pulse 97 97 96 Oximetry 12/27/16 12/27/16 12/27/16 22:37 22:42 22:47 Temperature Pulse Rate 124 H 125 H 121 H Respiratory Rate Blood Pressure Blood Pressure [Right] O2 Sat by Pulse 97 97 96 Oximetry 12/27/16 12/27/16 12/27/16 22:52 22:57 23:02 Temperature Pulse Rate 114 H 104 H 109 H Respiratory Rate Blood Pressure Blood Pressure [Right] O2 Sat by Pulse 97 98 98 Oximetry 12/27/16 12/27/16 12/27/16 23:07 23:12 23:17 Temperature Pulse Rate 109 H 106 H 110 H Respiratory Rate Blood Pressure 128/84 Blood Pressure [Right] O2 Sat by Pulse 98 98 98 Oximetry 12/27/16 12/27/16 12/27/16 23:22 23:27 23:32 Temperature Pulse Rate 115 H 103 H 104 H Respiratory Rate Blood Pressure Blood Pressure [Right] O2 Sat by Pulse 98 98 99 Oximetry 12/27/16 12/27/16 12/27/16 23:36 23:37 23:42 Temperature Pulse Rate 107 H 133 H 118 H Respiratory Rate Blood Pressure 121/73 Blood Pressure [Right] O2 Sat by Pulse 100 100 Oximetry 12/27/16 12/27/1617 23:45 23:47 23:52 Temperature Pulse Rate 122 H 113 H 150 H Respiratory Rate Blood Pressure Blood Pressure [Right] O2 Sat by Pulse 87 99 83 L Oximetry 12/27/16 23:57 Temperature Pulse Rate 130 H Respiratory Rate Blood Pressure Blood Pressure [Right] O2 Sat by Pulse 99 Oximetry - Labs Labs: Abnormal Labs 12/27/16 18:00 RDW 17.3 H Laboratory Results - last 24 hr 12/27/16 12/27/16 12/27/16 17:30 18:00 18:00 WBC 10.3 RBC 4.20 Hgb 12.4 Hct 37.2 MCV 89 MCH 30 MCHC 33 RDW 17.3 H Plt Count 213 TSH Free T4 0.81 Blood Type A POSITIVE Antibody Screen Negative 12/27/16 18:00 WBC RBC Hgb Hct MCV MCH MCHC RDW Plt Count TSH 2.230 Free T4 Blood Type Antibody Screen
[2016-12-28] MEDS ORDERED: NACL 0.9% IR ONE (00:30)
[2016-12-28] MEDS ORDERED: WATER FOR IRRIG STERILE IR ONE (00:30)
[2016-12-28] MEDS ORDERED: MORPHINE ONE ×2 (00:42)
[2016-12-28] MEDS ORDERED: XYLOCAINE MPF 2% ONE ×4 (00:45)
[2016-12-28] MEDS ORDERED: TORADOL ONE (00:45)
[2016-12-28] MEDS ORDERED: LACTATED RINGERS 1,000 ML IV SCH (01:00)
[2016-12-28] MEDS ORDERED: ANCEF/STERILE WATER 2 GM/20 ML 2 GM/20 ML SYRINGE IV NR (01:00)
[2016-12-28] MEDS ORDERED: PITOCin/NS 20 UNIT/1000ML DRIP 20 UNITS/1,000 ML BAG IV SCH ×2 (01:00→03:38)
--- NOTE | 2016-12-28 01:29 | Operative Report ---
Operative Report Operative Report: Date of procedure: 12/28/2016 Pre-operative diagnosis: 1. Intrauterine at 38 weeks 2. Advanced maternal age 3. Nonreassuring heart rate tracing 4. Failure to descend 5. Hypothyroidism 6. Chronic hypertension Post-operative diagnosis: 1. Intrauterine at 38 weeks 2. Advanced maternal age 3. Nonreassuring heart rate tracing 4. Failure to descend 5. Hypothyroidism 6. Chronic hypertension Procedure name(s): Low transverse section Surgeon: Gayla Sanchez MD Chemists: Marine Jordan CNM Anesthesia: Epidural EBL: 600 mL Complications: None Findings: Liveborn female infant. Weight 7 lbs. 6 oz. Apgars 8 at 1 minute 9 at 5 minutes. Grossly normal tubes and ovaries. Uterine fibroids noted. Procedure: After risks, benefits, and complications and alternatives and consequences, were discussed with patient, and she voiced her understanding and desired to proceed. Patient was taken to the OR, where epidural anesthesia was bolused. She was then placed in the right lateral tilt position, and prepped and draped in the usual sterile fashion. After timeout was performed, and an appropriate level of anesthesia was noted, a Pfannenstiel incision was made and extended to the fascia. The fascia was incised and extended in a lateral direction. The overlying fascia was sharply dissected away from the underlying rectus muscles in the superior-inferior direction. The midline was entered bluntly. The vesicouterine fold was incised and with blunt and sharp dissection the bladder flap was created. A transverse incision was made in the lower uterine segment and extended in the superior lateral direction with finger fractionation. Clear fluid was noted. The infant was delivered from the cephalic position.The cord was doubly clamped and cut. The 's mouth and nose were bulb suctioned. And the infant was given to the resuscitation team present. The placenta was manually extracted. The uterus was exteriorized and cleaned any products of conception and placental tissue. The incision was reapproximated using 0 Vicryl in a running interlocking stitch. The uterine incision was further reinforced with a layer of 0 Vicryl in imbricating fashion. Grossly normal tubes and ovaries were noted. Once hemostasis was noted, the uterus was allowed back into the pelvic cavity. The pelvis was irrigated with warm normal saline. Once hemostasis was noted, Surgicel was applied to the anterior surface of the incision. Once hemostasis was noted, Interceed was applied to the anterior aspect of the uterus for adhesion prevention. Once hemostasis was noted, attention was turned to the rectus muscles. Once hemostasis was noted, the fascia was reapproximated using 0 Vicryl in a simple running stitch. Once hemostasis was noted, the incision was irrigated with normal saline. The incision was then reapproximated using 4- 0 Vicryl on a Kameron needle in a subcuticular manner. Patient tolerated the procedure well she was taken to recovery room in stable condition. Counts were correct 3
[2016-12-28] MEDS ORDERED: NARCAN 0.4 MG/1 ML IV PRN ×2 (01:32→03:38)
[2016-12-28] MEDS ORDERED: DILAUDID IV PRN ×2 (01:32)
[2016-12-28] MEDS ORDERED: PHENERGAN PR PRN (01:32)
[2016-12-28] MEDS ORDERED: PHENERGAN PO PRN (01:32)
[2016-12-28] MEDS ORDERED: ZOFRAN IV PRN (01:32)
--- NOTE | 2016-12-28 01:32 | Post Anesthesia Evaluation ---
- Post Anesthesia Evaluation Patient Participated: Yes Airway Patent: Yes Stable Respiratory Function: Yes Nausea/Vomiting: No Temp > 96.8F: Yes Pain Manageable: Yes Adequeate Hydration: Yes Anesthesia Complications: No
[2016-12-28] MEDS ORDERED: SODIUM CHLORIDE FLUSH SYRINGE 10 ML IV NR ×2 (02:00→03:38)
[2016-12-28] MEDS ORDERED: fentaNYL-BUPIV 2 MCG/ML-0.125% 100 ML EPIDURAL SCH (02:00)
[2016-12-28] MEDS ORDERED: TORADOL IV PRN (03:38)
[2016-12-28] MEDS ORDERED: TUCKS PAD TP PRN (03:38)
[2016-12-28] MEDS ORDERED: MORPHINE IV PRN (03:38)
[2016-12-28] MEDS ORDERED: LANSINOH TP PRN (03:38)
[2016-12-28] MEDS ORDERED: ANCEF/NS 1 GM/50 ML 1 GM/50 ML BAG IV SCH (06:00)
[2016-12-28] MEDS: SYNTHROID PO SCH (06:16)
[2016-12-28] MEDS ORDERED: D5LR 1,000 ML IV ONE (06:18)
--- NOTE | 2016-12-28 06:41 | Progress Note ---
Assessment and Plan - Patient Problems (1) delivery delivered Onset Date: ~12/28/16 Current Visit: Yes Status: Acute Plan to address problem: pt is 6 hours post c/s Doing well No c/o voiced Will advance as tolerated later today. [place] clear yellow urine Subjective - Subjective Date of service: 12/28/16 Principal diagnosis: Day #0 S/P section nonreassuring FHT, IOL Patient reports: pain well controlled [place]: doing well Objective - Vital Signs Latest vital signs: Vital Signs Temp Pulse Resp BP BP Pulse Ox 12/28/16 03:22 98.6 F 104 H 18 126/68 12/28/16 02:35 105 H 19 128/79 96 12/28/16 02:25 98 H 17 138/80 95 12/28/16 02:10 98 H 16 127/76 98 12/28/16 01:55 100 H 20 133/78 99 12/28/16 01:40 104 H 18 126/57 99 12/28/16 01:36 106 H 16 140/46 99 12/28/16 01:32 98.1 F 104 H 16 125/65 99 12/27/16 23:57 130 H 99 12/27/16 23:52 150 H 83 L 12/27/16 23:47 113 H 99 12/27/16 23:45 122 H 87 12/27/16 23:42 118 H 100 12/27/16 23:37 133 H 100 12/27/16 23:36 107 H 121/73 12/27/16 23:32 104 H 99 12/27/16 23:27 103 H 98 12/27/16 23:22 115 H 98 12/27/16 23:17 110 H 98 12/27/16 23:12 106 H 98 12/27/16 23:07 109 H 128/84 98 12/27/16 23:02 109 H 98 12/27/16 22:57 104 H 98 12/27/16 22:52 114 H 97 12/27/16 22:47 121 H 96 12/27/16 22:42 125 H 97 12/27/16 22:37 124 H 97 12/27/16 22:32 109 H 96 12/27/16 22:27 113 H 97 12/27/16 22:22 120 H 127/75 97 12/27/16 22:17 118 H 99 12/27/16 22:12 113 H 100 12/27/16 22:07 117 H 123/70 100 12/27/16 22:02 115 H 100 12/27/16 21:57 121 H 100 12/27/16 21:53 121 H 126/63 12/27/16 21:52 123 H 99 12/27/16 21:47 114 H 100 12/27/16 21:42 120 H 91 12/27/16 21:40 114 H 94 12/27/16 21:38 117 H 125/59 12/27/16 21:37 115 H 96 12/27/16 21:35 115 H 89 12/27/16 21:32 116 H 100 12/27/16 21:27 120 H 100 12/27/16 21:22 118 H 100 12/27/16 21:17 121 H 100 12/27/16 21:13 126 H 107/53 12/27/16 21:12 121 H 100 12/27/16 21:09 114 H 122/58 12/27/16 21:07 121 H 124/60 100 12/27/16 21:05 121 H 128/61 12/27/16 21:04 115 H 139/63 12/27/16 21:02 117 H 100 12/27/16 21:01 117 H 103/51 12/27/16 21:00 118 H 98/54 89 12/27/16 20:57 107 H 108/55 98 12/27/16 20:55 105 H 109/60 12/27/16 20:54 75 108/58 12/27/16 20:52 91 H 92 12/27/16 20:51 96 H 117/72 12/27/16 20:49 96 H 122/63 12/27/16 20:47 89 122/61 99 12/27/16 20:45 85 124/68 12/27/16 20:43 86 121/62 12/27/16 20:42 101 H 130/71 97 12/27/16 20:37 95 H 129/67 12/27/16 20:36 83 96 12/27/16 20:31 105 H 96 12/27/16 20:26 100 H 96 12/27/16 20:23 82 93 12/27/16 20:21 94 H 97 12/27/16 20:18 102 H 98/55 12/27/16 20:16 80 97 12/27/16 20:14 81 92 12/27/16 20:11 95 H 97 12/27/16 20:06 81 97 12/27/16 20:01 97 H 98 12/27/16 20:00 18 12/27/16 19:56 94 H 99 12/27/16 19:51 85 99 12/27/16 19:47 99 H 116/64 12/27/16 19:46 95 H 98 12/27/16 19:42 97.4 F L 94 H 18 116/64 98 12/27/16 18:19 97.6 F 18 125/75 12/27/16 17:48 110 H 98 12/27/16 17:39 104 H 125/75 Intake and Output 12/27/16 12/27/16 12/28/16 14:59 22:59 06:59 Intake Total 1000 1625 Output Total 450 Balance 1000 1175 Intake: IV 1000 1625 Lactated Ringers 1,000 ml 1000 @ 125 mls/hr IV DIRECT LEIDA Rx#:[id number] Left Wrist 250 PITOCin/NS 20 UNIT/1000ML 375 DRIP 20 units In 1,000 ml @ As Directed IV TITR LEIDA Rx#:[id number] Output: Urine 450 Uretheral ([place]) 200 Other: Weight 237 lb Estimated Blood Loss 600 Patient Weight 12/28/16 06:59 Weight 237 lb - Exam Breasts: Present: normal, Cardiovascular: Present: Regular rate Lungs: Present: Normal air movement Abdomen: Present: normal appearance, soft Uterus: Present: normal, fundal height below umbilicus Extremities: Present: normal, edema Deep Tendon Reflex Grade: Normal +2 Incision: Present: normal, dry, intact - Labs Labs: Abnormal lab results 12/27/16 Range/Units 18:00 RDW 17.3 H (13.2-15.2) %
[2016-12-28] MEDS ORDERED: D5LR 1,000 ML IV SCH (07:00)
[2016-12-28] MEDS ORDERED: Fluarix Quad 2017-2018(36 MOS+) IM ONE (12:00)
[2016-12-28 15:58] LABS: Hematocrit 30.6 % (30.3-42.9); Hemoglobin 10.1 gm/dl (10.1-14.3)
[2016-12-28] MEDS: ANCEF/NS 1 GM/50 ML 1 GM/50 ML BAG IV SCH (19:16)
[2016-12-28] MEDS: MOTRIN PO PRN (19:19)
[2016-12-28] MEDS: MYLICON PO PRN (19:49)
[2016-12-29] MEDS: MYLICON PO PRN ×2 (00:57→08:13)
[2016-12-29] MEDS: MOTRIN PO PRN ×3 (00:57→17:47)
[2016-12-29] MEDS: SYNTHROID PO SCH (05:17)
[2016-12-29] MEDS: PERCOCET 5/325 PO PRN ×3 (05:23→22:28)
[2016-12-29] MEDS ORDERED: BOOSTRIX IM ONE (06:05)
--- NOTE | 2016-12-29 07:59 | Progress Note ---
Assessment and Plan patient doing well, c/o gas pain, abd distended. encouraged ambulation & use of medication. Lochia scant, Incision D&I, VSSAF, H&H 10.05/15.6. Continue current postop pathway. Plan for d/c home tomorrow. - Patient Problems (1) Hypertension Current Visit: Yes Status: Acute Qualifiers: Hypertension type: essential hypertension Qualified Code(s): I10 - Essential (primary) hypertension (2) Hypothyroidism affecting Current Visit: Yes Status: Acute Qualifiers: Trimester: third trimester Qualified Code(s): O99.283 - Endocrine, nutritional and metabolic diseases complicating , third trimester; E03.9 - Hypothyroidism, unspecified (3) delivery delivered Onset Date: ~12/28/16 Current Visit: Yes Status: Acute Subjective - Subjective Date of service: 12/29/16 Principal diagnosis: postop day #1 s/p primary c/s Interval history: EDC Calculations LMP: 01/07/2017 EDC Confirmation: 01/07/2017 Past History : 4 Para: 0 Aborta: 3 Spont. Ab: 1 Past Medical History: Hypertension Hypothyroidism Past Surgical History: D&C 2009 Past Medical History Anesthesia Complications: negative Anemia: negative Autoimmune Disorder: negative Bleeding Disorder: negative Blood Transfusions: negative Breast Disease: negative Diabetes: negative Heart Disease: negative Hypertension: positive Hepatitis/Liver Disease: negative Kidney Disease/UTI: negative Neurologic/Epilepsy/Migraines: negative Phlebitis/Varicosities: negative Psychiatric: negative Pulmonary Disease/Asthma: negative Thyroid Disease: positive Hospitalizations: negative Surgery (Non-reimbursement liaison): D&C 2009 Abnormal PAP: positive, age 29, cryo SUKHDE[place] Exposure: negative Infertility: positive Uterine Anomaly: negative Uterine Surgery (not C/S): negative Other Gynecologic Problems: negative Social Hx: , no etoh, no illicit drug use, no tobacco use x 3 years Patient is 2011. he had a mental breakdown Infection History Hx of STD: gonorrhea HIV Risk Eval: no Hepatitis B Risk Eval: low risk Personal hx. of genital herpes: no Partner hx. of genital herpes: no Rash, Viral, or Febrile illness since last LMP? no Varicella/Chicken Pox Status: Previous Disease TB Risk: no Infection History Comments: 1989 Genetic History ADVANCED MATERNAL AGE Congenital Heart Defect: Mom: no Dad: no Jah Disease: Mom: no Dad: no Thalassemia Mom: no Dad: no Neural Tube Defect Mom: no Dad: no Down's Syndrome Mom: no Dad: no Nile-Sachs Mom: no Dad: no Sickle Cell Disease/Trait Mom: no Dad: no Hemophilia Mom: no Dad: no Muscular Dystrophy Mom: no Dad: no Cystic Fibrosis Mom: no Dad: no [place] Chorea Mom: no Dad: no Mental Retardation Mom: no Dad: no Fragile X Mom: no Dad: no Other Genetic/Chromosomal Disorder Mom: no Dad: no Child w/other defect Mom: no Dad: no Enviromental Exposures Xray Exposure: no Medication, drug, or alcohol use since LMP: no Chemical/Other Exposure: no Exposure to Cat Liter: no 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 (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): VITAMIN D 2000 UNIT CAPS (CHOLECALCIFEROL) ZYRTEC ALLERGY TABS (CETIRIZINE HCL TABS) METOPROLOL TARTRATE TABS (METOPROLOL TARTRATE TABS) TRIBENZOR 40-10-12.5 MG TABS ([id number]) SYNTHROID 25 MCG TABS (LEVOTHYROXINE SODIUM) 1 tab daily IBUPROFEN 800 MG TABS (IBUPROFEN) 1 po q6 hr prn pain Current Allergies (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): No known allergies Patient reports: appetite normal, voiding normally, pain well controlled, ambulating normally, no dizzy ambulation, no nauseated [place]: doing well, nursing well Objective - Vital Signs Latest vital signs: Vital Signs Temp Pulse Resp BP BP Pulse Ox 12/29/16 01:40 98.1 F 104 H 20 115/69 12/28/16 22:00 98.3 F 107 H 20 117/78 12/28/16 16:30 98.3 F 98 H 19 116/72 12/28/16 12:40 98.0 F 90 19 122/74 12/28/16 10:20 65 9 L 108/64 100 12/28/16 10:10 59 L 25 H 103/47 99 12/28/16 10:00 63 21 104/60 100 12/28/16 09:50 62 21 105/59 100 12/28/16 09:40 61 21 103/66 100 12/28/16 09:30 71 16 109/63 100 12/28/16 09:24 66 13 100 12/28/16 08:30 99.0 F 90 19 121/77 Intake and Output 12/28/16 12/29/16 12/29/16 22:59 06:59 14:59 Intake Total 1140 360 Output Total 1600 Balance -460 360 Intake: IV 300 ANCEF/NS 1 GM/50 ML 1 gm 50 In 50 ml @ 100 mls/hr IV Q8H LEIDA Rx#:[id number] Left Wrist 250 Oral 840 360 Output: Urine 1600 Void 1600 Other: Total, Intake Amount 240 120 Total, Output Amount 600 # Voids Void 1 - Exam Breasts: Present: normal Cardiovascular: Present: Regular rate Lungs: Present: Clear to auscultation, Normal air movement Abdomen: Present: normal appearance, distention Vulva: both: normal Uterus: Present: normal, firm, fundal height at umbilicus Extremities: Present: normal Deep Tendon Reflex Grade: Normal +2 Incision: Present: normal, dry, intact
--- NOTE | 2016-12-29 10:01 | Progress Note ---
Subjective Date of service: 12/29/16 Principal diagnosis: postop day #1 s/p primary c/s Interval history: 1st POD after primary Patient is in the bed, comfortable. pain is mostly controlled with pain meds. Ambulated well. No residual neurological deficit. No significant pruritus. No anesthesia complications Objective - Constitutional Vitals: Vital Signs - 12hr 12/29/16 01:40 Temperature 98.1 F Pulse Rate 104 H Respiratory 20 Rate Blood Pressure 115/69 [Right] - Labs CBC & Chem 7: 12/28/16 15:37
[2016-12-29] MEDS: PRENATAL VITAMIN PO SCH (11:56)
[2016-12-30] MEDS: SYNTHROID PO SCH (06:08)
--- NOTE | 2016-12-30 08:08 | Discharge Summary ---
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 Wound care reviewed Pt to call with any concerns. Condition at discharge: Good Disposition: DC-01 TO HOME OR SELFCARE - Discharge Diagnoses (1) delivery delivered Status: Acute Comment: rto 1 week for postop care Plan - Discharge Medications Prescriptions: Ibuprofen [Motrin 800 MG tab] 800 mg PO TID PRN #30 tablet PRN Reason: Pain oxyCODONE /ACETAMINOPHEN [Percocet 5/325 mg] 1 - 2 tab PO Q4HR PRN #30 tablet PRN Reason: Pain - Provider Discharge Summary Activity: routine, no sex for 6 weeks, no heavy lifting 4 weeks, no strenuous exercise Diet: routine Instructions: routine Additional instructions: [] Smoking cessation referral if applicable(refer to patient education folder for contact #) [] Refer to [facility] Booklet Call your doctor immediately for: * Fever > 100.5 * Heavy vaginal bleeding ( >1 pad per hour) * Severe persistent headache * Shortness of breath * Reddened, hot, painful area to leg or breast * Drainage or odor from incision. * Keep incision clean and dry at all times and follow doctor's instructions regarding bathing/showering - Follow up plan Follow up: HUDSON MORALES MD [Primary Care Provider] - 7 Days (Congratulations! Please call [phone] to schedule your postoperative visit in one week. Call with any headache, unrelieved with Tylenol, blurred vision, chest pain. Take medication as prescribed. Call with concerns. )
[2016-12-30] MEDS: MOTRIN PO PRN (09:51)
[2016-12-30] MEDS: PERCOCET 5/325 PO PRN (09:51)
[2016-12-30] MEDS: PRENATAL VITAMIN PO SCH (09:52)
[2016-12-30 18:16] VITALS: BP 124/72
== END 2016-12-30 15:45 | disposition home or self-care (01) | DRG 765 ==
LOC: LD 16:48 → OB 12-28 03:05
PROVIDERS: ADMIT Obstetrics & Gynecology; ATTEND Obstetrics & Gynecology
PROC: 10D00Z1 Extraction of Products of Conception, Low, Open Approach (ICD-10-PCS; principal; 2016-12-28)
DX: O76 Abnormality in fetal heart rate and rhythm complicating labor and delivery (principal); O10.92 Unspecified pre-existing hypertension complicating childbirth; O99.284 Endocrine, nutritional and metabolic diseases complicating childbirth; E03.9 Hypothyroidism, unspecified; Z3A.38 38 weeks gestation of pregnancy; Z37.0 Single live birth; O62.2 Other uterine inertia; O32.4XX0 Maternal care for high head at term, not applicable or unspecified
CPT/HCPCS: 36415; 84439; 84443; 85014; 85018; 85027; 86592; 86850; 86900; 86901; 88307; 90471; 90715; 99211; C1765; G0463; J0290; J0690; J1885; J2270; J2590; J2765; J3010; J7120; J7121

== ENCOUNTER 2019-01-17 07:58 | Outpatient (CLI) | payer BC ==
--- NOTE | 2019-01-20 08:58 | Mammography Report ---
DIGITAL SCREENING MAMMOGRAM WITH CAD, 01/17/2019 INDICATION: Routine screening mammography. TECHNIQUE: Digital bilateral 2D mammography was obtained in the craniocaudal and mediolateral obliq ue projections. This examination was interpreted with the benefit of Computer-Aided Detection analysi s. COMPARISON: None available. However, she indicated that she had a prior mammogram at [facility] FINDINGS: Breast Density: The breasts are heterogeneously dense, which may obscure small masses. Right asymmetries on the MLO view requires comparison with the prior mammogram or additional imaging. No architectural distortion or suspicious calcifications. There is no evidence of dominant mass, gabriel picious calcifications or architectural distortion in the left breast. IMPRESSION:Comparison with a previous mammogram or additional imaging is required. We will attempt to obtain a prior mammogram for comparison. If we do not obtain a prior mammogram within 30 days, a rev ised report will be issued recommending a recall for additional imaging. Please be advised that the p atient should not schedule an appointment for return until adequate time (at least 2 weeks) has passe d breast to obtain the prior mammogram. Follow up recommendation: Obtain prior study for comparison Category 0: Incomplete. Needs additional imaging evaluation and/or prior mammograms for comparison. A "normal" or negative report should not discourage follow up or biopsy of a clinically significant f inding. A written summary of these findings will be mailed to the patient. The patient will be entered into a mammography reporting system which will generate a reminder letter for the patient's next appointmen t at the appropriate interval. The [employer] recommends yearly mammograms starting at age 40 and continuing as l raj as a woman is in good health. Breast MRI is recommended for women with an approximate 20-25% or greater lifetime risk of breast cancer, including women with a strong family history of breast or ova jose cancer or who have been treated for Hodgkin's disease. Signer Name: Christopher Madrid MD Signed: 01/20/2019 8:54 AM Workstation Name: [id number]
== END 2019-01-17 07:59 | disposition home or self-care (01) ==
LOC: SPVWC 07:58
PROVIDERS: ATTEND Obstetrics & Gynecology
DX: Z12.31 Encounter for screening mammogram for malignant neoplasm of breast (principal)
CPT/HCPCS: 77067